=== PATIENT | male | born 1995 | race Caucasian/White ===

== ENCOUNTER 2019-12-19 21:09 | Emergency (ER) | payer OTHER ==
[2019-12-19] MEDS ORDERED: Lidocaine 1% 10 ML MDV INJECT ONE (21:29)
--- NOTE | 2019-12-19 21:57 | EDM.PDOC ---
ED HPI GENERAL MEDICAL PROBLEM - General Chief Complaint: Laceration Stated Complaint: PUCK TO THE FACE AT HOCKEY Time Seen by Provider: 12/19/19 21:25 Source of Information: Reports: Patient, RN Notes Reviewed History Limitations: Reports: No Limitations - History of Present Illness INITIAL COMMENTS - FREE TEXT/NARRATIVE: Patient is a 24-year-old male presenting to the emergency department with complaints of a laceration to the bridge of his nose. States he got hit in the face with a hockey puck. The hockey puck hit his helmet first and then slid downward causing a laceration. He denies headache or any significant pain to the nasal bones themselves. Denies epistaxis at the time of the injury. States his last tetanus vaccination was about 4 years ago. Nose Pain Score (Numeric/FACES): 3 - Related Data Allergies Allergy/AdvReac Type Severity Reaction Status Date / Time No Known Allergies Allergy Verified 12/19/19 21:26 Home Meds: Home Meds . [No Known Home Meds] 12/19/19 [History] Past Medical History - Past Health History Medical/Surgical History: Denies Medical/Surgical History Social & Family History - Family History Family Medical History: Noncontributory - Tobacco Use Tobacco Use Status *Q: Never Tobacco User - Caffeine Use Caffeine Use: Reports: Coffee, Soda - Recreational Drug Use Recreational Drug Use: No ED ROS GENERAL - Review of Systems Review Of Systems: Comprehensive ROS is negative, except as noted in HPI. ED EXAM, SKIN/RASH Exam: See Below General Appearance: Alert, WD/WN, No Apparent Distress Nose: Other (1.5 cm laceration to nasal bridge). No: Nasal Tenderness, Nasal Deformity, Nasal Swelling Respiratory/Chest: No Respiratory Distress, Lungs Clear, Normal Breath Sounds, No Accessory Muscle Use, Chest Non-Tender Cardiovascular: Normal Peripheral Pulses, Regular Rate, Rhythm, No Edema, No Gallop, No JVD, No Murmur, No Rub Neurological: Alert, Oriented, CN II-XII Intact, Normal Cognition, Normal Gait, Normal Reflexes, No Motor/Sensory Deficits Psychiatric: Normal Affect, Normal Mood ED SKIN PROCEDURES - Laceration/Wound Repair Upper Nose Appearance: Subcutaneous, Other (Drayden-shaped) Local Anesthesia - Lidocaine (Xylocaine): 1% Plain Local Anesthetic Volume: 2cc Skin Prep: Chlorhexidine (Hibiciens), Saline, Sterile Drape Exploration/Debridement/Repair: Wound Explored, No Foreign Material Found Closed with: Sutures Lac/Wound length In cm: 1.5 Suture Size: 6-0 # of Sutures: 5 Suture Type: Nylon Sterile Dressing Applied: Nurse Tetanus Status Addressed: Yes Complications: No Course - Vital Signs Last Recorded V/S: Last Vital Signs Temp 97.2 F 12/19/19 21:22 Pulse 101 H 12/19/19 21:22 Resp 14 12/19/19 21:22 BP 112/77 12/19/19 21:22 Pulse Ox 94 L 12/19/19 21:22 - Orders/Labs/Meds Meds: Medications Discontinued Medications Generic Name Dose Route Start Last Admin Trade Name Lisbet PRN Reason Stop Dose Admin Lidocaine HCl 10 ml 12/19/19 21:29 12/19/19 21:42 Xylocaine 1% INJECT 12/19/19 21:30 10 ml ONETIME ONE Administration - Re-Assessments/Exams Free Text/Narrative Re-Assessment/Exam: Patient is a 24-year-old male presenting to the emergency department with a 1.5 cm crescent-shaped laceration to his nasal bridge. States that a hockey puck hit him in the face, however he did hit his helmet prior to coming down to his nose. On exam, he has no tenderness or deformity of the nasal bones, no deformity, and he did not have epistaxis at the time of the injury. There were no signs of nasal fracture, therefore imaging is not indicated at this time. His last tetanus vaccination was 4 years ago. Laceration was closed with sutures. See procedure notes for closure. Discharge instructions as documented. Departure - Departure Time of Disposition: 21:57 Disposition: Home, Self-Care 01 Condition: Good Clinical Impression: Laceration - Discharge Information *PRESCRIPTION DRUG MONITORING PROGRAM REVIEWED*: No *COPY OF PRESCRIPTION DRUG MONITORING REPORT IN PATIENT JAIMIE: No Instructions: Laceration Care, Adult, [id number] Forms: ED Department Discharge Additional Instructions: You were seen in the emergency department today for a laceration to your nose. The wound was cleansed and closed with 5 sutures. These should stay intact for 3-5 days. After that time they may be removed in the clinic by a nurse. I would recommend calling to schedule a nurse appointment to have the sutures removed on Monday or Monday of next week. The number to schedule [phone]. Keep the wound clean and dry. Wash with normal soap and water twice daily. Do not submerge the wound in water. Watch for signs of infection including increased redness, swelling, or purulent drainage. If these should occur, you should be seen either in the clinic or in the emergency department as antibiotic treatment may be needed. Return to the ER as needed. Sepsis Event Note (ED) - Evaluation Sepsis Screening Result: No Definite Risk - Focused Exam Vital Signs: Vital Signs Temp Pulse Resp BP Pulse Ox 12/19/19 21:22 97.2 F 101 H 14 112/77 94 L
== END 2019-12-19 22:07 | disposition home or self-care (01) ==
LOC: JD.ED 21:09
DX: S01.21XA Laceration without foreign body of nose, initial encounter (principal); W21.220A Struck by ice hockey puck, initial encounter; Y93.22 Activity, ice hockey
CPT/HCPCS: 12011; 99282; J2001

== ENCOUNTER 2020-08-02 19:10 | Emergency (ER) | payer OTHER ==
--- NOTE | 2020-08-02 19:54 | EDM.PDOC ---
ED HPI GENERAL MEDICAL PROBLEM - General Chief Complaint: Abdominal Pain Stated Complaint: RIGHT SIDE PAIN Time Seen by Provider: 08/02/20 19:22 Source of Information: Reports: Patient, RN Notes Reviewed - History of Present Illness INITIAL COMMENTS - FREE TEXT/NARRATIVE: 24 yo male comes in with R back pain for about 24 hrs worse the last few hrs with off and on radiation to R groin. No voiding sx. Slight nausea, no vomiting, fever or chills. Right Lower Abdominal Pain Score (Numeric/FACES): 6 - Related Data Allergies Allergy/AdvReac Type Severity Reaction Status Date / Time No Known Allergies Allergy Verified 08/02/20 19:19 Home Meds: Home Meds . [No Known Home Meds] 12/19/19 [History] Past Medical History - Past Health History Medical/Surgical History: Denies Medical/Surgical History Social & Family History - Family History Family Medical History: No Pertinent Family History - Tobacco Use Tobacco Use Status *Q: Never Tobacco User Second Hand Smoke Exposure: No - Caffeine Use Caffeine Use: Reports: Soda - Recreational Drug Use Recreational Drug Use: No ED ROS GENERAL - Review of Systems Review Of Systems: See Below Constitutional: Denies: Fever, Chills, Diaphoresis HEENT: Reports: No Symptoms Respiratory: Denies: Shortness of Breath GI/Abdominal: Reports: Nausea. Denies: Abdominal Pain, Diarrhea, Vomiting : Reports: No Symptoms Musculoskeletal: Reports: Back Pain Skin: Reports: No Symptoms Neurological: Reports: No Symptoms ED EXAM, GI/ABD - Physical Exam Exam: See Below General Appearance: Alert, Mild Distress Head: Atraumatic Respiratory/Chest: No Respiratory Distress, Lungs Clear Cardiovascular: Regular Rate, Rhythm GI/Abdominal Exam: Soft, Non-Tender. No: Guarding Back Exam: CVA Tenderness (R) (mild) Extremities: Normal Inspection, Normal Range of Motion Neurological: Alert, Oriented, No Motor/Sensory Deficits Skin Exam: Warm, Dry, Normal Color Course - Vital Signs Last Recorded V/S: Last Vital Signs Temp 98.0 F 08/02/20 19:17 Pulse 82 08/02/20 19:17 Resp 18 08/02/20 19:17 BP 125/86 08/02/20 19:17 Pulse Ox 100 08/02/20 19:17 - Orders/Labs/Meds Orders: Active Orders 24 hr Category Date Time Status Abdomen Pelvis wo Cont [CT] Stat Exams 08/02/20 19:49 Taken Labs: Laboratory Tests 08/02/20 08/02/20 08/02/20 Range/Units 19:56 20:00 20:00 WBC 8.69 (4.23-9.07) K/mm3 RBC 5.13 (4.63-6.08) M/mm3 Hgb 15.2 (13.7-17.5) gm/dl Hct 43.1 (40.1-51.0) % MCV 84.0 (79.0-92.2) fl MCH 29.6 (25.7-32.2) pg MCHC 35.3 (32.2-35.5) g/dl RDW Std Deviation 37.9 (35.1-43.9) fL Plt Count 199 (163-337) K/mm3 MPV 10.8 (9.4-12.3) fl Neut % (Auto) 66.0 (34.0-67.9) % Lymph % (Auto) 22.6 (21.8-53.1) % [place] % (Auto) 9.6 (5.3-12.2) % Eos % (Auto) 1.4 (0.8-7.0) Baso % (Auto) 0.2 (0.1-1.2) % Neut # (Auto) 5.74 H (1.78-5.38) K/mm3 Lymph # (Auto) 1.96 (1.32-3.57) K/mm3 [place] # (Auto) 0.83 H (0.30-0.82) K/mm3 Eos # (Auto) 0.12 (0.04-0.54) K/mm3 Baso # (Auto) 0.02 (0.01-0.08) K/mm3 C-Reactive Protein 0.9 (<1.0) mg/dL Urine Color Yellow (Yellow) Urine Appearance Clear (Clear) Urine pH 6.5 (5.0-8.0) Ur Specific [place] > or = 1.030 (1.005-1.030) Urine Protein Negative (Negative) Urine Glucose (UA) Negative (Negative) Urine Ketones Negative (Negative) Urine Occult Blood Negative (Negative) Urine Nitrite Negative (Negative) Urine Bilirubin Negative (Negative) Urine Urobilinogen 0.2 (0.2-1.0) Ur Leukocyte Esterase Negative (Negative) - Re-Assessments/Exams Free Text/Narrative Re-Assessment/Exam: 08/02/20 21:33 WBC, Ua nl, CRP 0.9 08/02/20 21:40. CT Abd also nl, pt resting fairly comfortably at this time, discharge instr. as documented. Departure - Departure Time of Disposition: 21:40 Disposition: Home, Self-Care 01 Condition: Fair Clinical Impression: Back pain Qualifiers: Back pain location: low back pain Chronicity: acute Back pain laterality: right Sciatica presence: without sciatica Qualified Code(s): M54.5 - Low back pain - Discharge Information Referrals: PCP,None [Primary Care Provider] - Forms: ED Department Discharge Additional Instructions: Alternate ice and heat as needed. You may also alternate tylenol and iubprofen as needed. Follow up clinic if symptoms do not resolve over the next 3 to 5 days as expected. Return to ED as needed if symptoms worsening in any way. Sepsis Event Note (ED) - Evaluation Sepsis Screening Result: No Definite Risk - Focused Exam Vital Signs: Vital Signs Temp Pulse Resp BP Pulse Ox 08/02/20 19:17 98.0 F 82 18 125/86 100 - My Orders Last 24 Hours: My Active Orders 08/02/20 19:49 Abdomen Pelvis wo Cont [CT] Stat - Assessment/Plan Last 24 Hours: My Active Orders 08/02/20 19:49 Abdomen Pelvis wo Cont [CT] Stat
--- NOTE | 2020-08-03 09:30 | CT ---
CT abdomen and pelvis Technique: Multiple axial sections were obtained from above the dome of the diaphragm inferiorly through the pubic symphysis. Intravenous contrast and oral contrast were not given. Reconstructed coronal and sagittal images were obtained. Comparison: No prior abdominal imaging is available. Findings: No abnormal calcifications are seen within the kidneys. No ureteral dilatation or ureteral stone is seen. No bladder calculi are seen. Visualized lung bases shows nothing acute. Noncontrast appearance of the liver shows no focal abnormality. Noncontrast size of the spleen appears normal. Gallbladder contains no calcified gallstones. No gallbladder wall thickening is seen. Pancreas shows no discrete abnormality. Abdominal aorta shows no aneurysm. No retroperitoneal adenopathy or mesenteric abnormalities are seen. No pelvic mass or adenopathy is seen. No free fluid or inflammatory change is appreciated. Appendix is seen which is normal in size. Bone window settings were reviewed. No acute osseous abnormality is appreciated. Impression: 1. No renal calculi, ureteral dilatation or ureteral stone is seen. 2. Nothing acute is appreciated on noncontrast CT study of the abdomen and pelvis. Diagnostic code #1 I agree with preliminary report from [facility] finalized on 08/02/20, 10:31 PM CDT, code 1
== END 2020-08-02 22:12 | disposition home or self-care (01) ==
LOC: JD.ED 19:10
DX: M54.5 Low back pain (principal)
CPT/HCPCS: 36415; 74176; 74176-26; 81003; 85025; 86140; 99283; 99284-25